=== PATIENT | female | born 1995 | race Two or more races ===

== ENCOUNTER 2024-10-28 07:57 | Outpatient (RCR) | payer MEDICAID, SELFPAY ==
--- NOTE | 2024-09-09 08:29 | XR_ITS ---
Examination: Biophysical profile, ultrasound Date and time of exam: September 09, 2024 0832 hours INDICATIONS: Diagnosis gestational diabetes Technique: Multiple transabdominal sonographic images of the pelvis abdomen obtained. Attention is directed to the breathing movement, gross body movement, amniotic fluid volume and tone. Findings: Amniotic fluid index 12.8 cm Total biophysical profile is 8 of 8. breathing movement is 2. Gross body movement is 2. tone is 2. Qualitative amniotic fluid volume is 2 Impression: Biophysical profile is 8 of 8.
[2024-09-09 09:05] VITALS: BP 106/60; PULSE 70; RESP 20
--- NOTE | 2024-09-16 08:07 | XR_ITS ---
Examination: Biophysical profile, ultrasound Date and time of exam: September 16, 2024 0812 hours INDICATIONS: Diagnosis gestational diabetes Technique: Multiple transabdominal sonographic images of the pelvis abdomen obtained. Attention is directed to the breathing movement, gross body movement, amniotic fluid volume and tone. Findings: Amniotic fluid index 20.0 cm Total biophysical profile is 8 of 8. breathing movement is 2. Gross body movement is 2. tone is 2. Qualitative amniotic fluid volume is 2 Impression: Biophysical profile is 8 of 8.
[2024-09-16 09:09] VITALS: BP 108/54; PULSE 66; RESP 18; TEMP 36.7
--- NOTE | 2024-09-23 08:04 | XR_ITS ---
Examination: Biophysical profile, ultrasound Date and time of exam: September 28, 2024 0806 hrs. Indications: Diagnosis gestational diabetes Technique: Multiple transabdominal sonographic images of the pelvis abdomen obtained. Attention is directed to the breathing movement, gross body movement, amniotic fluid volume and tone. Findings: Amniotic fluid index 22.5 cm Total biophysical profile is 8 of 8. breathing movement is 2. Gross body movement is 2. tone is 2. Qualitative amniotic fluid volume is 2 Impression: Biophysical profile is 8 of 8. Amniotic fluid index 22.5 cm
[2024-09-23 08:26] VITALS: BP 120/58; PULSE 74; RESP 16; TEMP 36.6
--- NOTE | 2024-09-30 08:41 | XR_ITS ---
Examination: Biophysical profile, ultrasound Date and time of exam: September 30, 2024 0902 hours INDICATIONS: Diagnosis gestational diabetes, diagnosis polyhydramnios, diagnosis three-vessel umbilical cord Technique: Multiple transabdominal sonographic images of the pelvis abdomen obtained. Attention is directed to the breathing movement, gross body movement, amniotic fluid volume and tone. Findings: Amniotic fluid index 15.4 cm Total biophysical profile is 8 of 8. breathing movement is 2. Gross body movement is 2. tone is 2. Qualitative amniotic fluid volume is 2 Impression: Biophysical profile is 8 of 8. Incidental note three-vessel umbilical cord, thickened appearance
[2024-09-30 10:20] VITALS: BP 109/57; PULSE 70; RESP 18; TEMP 36.5
--- NOTE | 2024-10-14 08:08 | XR_ITS ---
Examination: Biophysical profile, ultrasound Date and time of exam: October 14, 2024 0827 hours INDICATIONS: Diagnosis gestational diabetes, diagnosis polyhydramnios, diagnosis three-vessel umbilical cord Technique: Multiple transabdominal sonographic images of the pelvis abdomen obtained. Attention is directed to the breathing movement, gross body movement, amniotic fluid volume and tone. Findings: Amniotic fluid index 15.6 cm Total biophysical profile is 8 of 8. breathing movement is 2. Gross body movement is 2. tone is 2. Qualitative amniotic fluid volume is 2 Impression: Biophysical profile is 8 of 8.
[2024-10-14 08:50] VITALS: BP 110/62; PULSE 69; RESP 18; TEMP 35.8
--- NOTE | 2024-10-21 08:14 | XR_ITS ---
Examination: Biophysical profile, ultrasound Date and time of exam: October 21, 2024 0831 hours INDICATIONS: Diagnosis gestational diabetes Technique: Multiple transabdominal sonographic images of the pelvis abdomen obtained. Attention is directed to the breathing movement, gross body movement, amniotic fluid volume and tone. Findings: Amniotic fluid index 17.1 cm Total biophysical profile is 8 of 8. breathing movement is 2. Gross body movement is 2. tone is 2. Qualitative amniotic fluid volume is 2 Impression: Biophysical profile is 8 of 8.
[2024-10-21 08:44] VITALS: BP 109/58; PULSE 68; RESP 16; TEMP 36.6
--- NOTE | 2024-10-28 08:02 | XR_ITS ---
Examination: Biophysical profile, ultrasound Date and time of exam: October 28, 2024 at 0817 hrs. Indications: Diagnosis gestational diabetes Technique: Multiple transabdominal sonographic images of the pelvis abdomen obtained. Attention is directed to the breathing movement, gross body movement, amniotic fluid volume and tone. Findings: Amniotic fluid index 19.3 cm Total biophysical profile is 8 of 8. breathing movement is 2. Gross body movement is 2. tone is 2. Qualitative amniotic fluid volume is 2 Impression: Biophysical profile is 8 of 8.
[2024-10-28 08:35] VITALS: BP 110/64; PULSE 67; RESP 16; TEMP 36.6
== END 2024-10-28 23:59 | disposition home or self-care (01) ==
LOC: S4S1 07:57
PROVIDERS: PCP Advanced Practice Midwife; Referring Provider Advanced Practice Midwife; Visit Provider Advanced Practice Midwife
DX: O24.410 Gestational diabetes mellitus in pregnancy, diet controlled (principal); Z3A.39 39 weeks gestation of pregnancy; O09.93 Supervision of high risk pregnancy, unspecified, third trimester; Z11.1 Encounter for screening for respiratory tuberculosis
CPT/HCPCS: 59025; 76819

== ENCOUNTER 2024-10-30 18:14 | Inpatient (IN) | payer MEDICAID, SELFPAY ==
[2024-10-30] VITALS (9 sets, daily range): BP systolic 108–118; BP diastolic 55–68; PULSE 66–72; RESP 17–20; TEMP 36.4–36.9; BMI 30.2
[2024-10-30] MEDS: Ampicillin Inj 2,000 MG in SODIUM CHLORIDE 0.9% (POP) 100 ML 100 MG IV (19:20)
[2024-10-30] MEDS: RINGERS LACTATED 1000 ML 1,000 ML 100 ML IV (19:21)
[2024-10-30 19:43] LABS: Basophils % (Auto) 0 % (0-2.5); Eosinophils # (Auto) 0.1 Thou/mm3 (0.0-0.5); Eosinophils % (Auto) 1 % (0-10); Hematocrit 36.1 % (36.0-46.0); Hemoglobin 12.3 g/dL (12.0-16.0); Immature Granulocytes % (Auto) 1 % (0-0); Immature Granulocytes Auto 0.06 Thou/mm3 (0.00-0.00); Lymphocytes # (Auto) 2.2 Thou/mm3 (1.0-4.8); Lymphocytes % (Auto) 28 % (10-50); Mean Corpuscular HGB Conc 34.1 g/dl (31.0-37.0); Mean Corpuscular Hemoglobin 28.2 pg (25.0-35.0); Mean Corpuscular Volume 83 fL (80-100); Monocytes # (Auto) 0.6 Thou/mm3 (0.0-0.8); Monocytes % (Auto) 8 % (0-12); Neutrophils # (Auto) 4.7 Thou/mm3 (1.8-7.7); Neutrophils % (Auto) 61 % (37-80); Nucleated Red Blood Cell % 0 /100 WBC (0); Platelet Count 295 Thou/mm3 (140-440); RDW Standard Deviation 41.5 fL (36.4-46.3); Red Blood Count 4.36 Miln/mm3 (4.00-5.20); White Blood Count 7.7 Thou/mm3 (3.6-11.0)
--- NOTE | 2024-10-30 20:12 | PD.LDHP ---
Documentation for date of: 10/30/24 OB Labor/Induct. HPI History of Present Illness : 4 Para: 3 Term pregnancies: 0 pregnancies: 0 Living children: 3 History of Abortions: Spontaneous and Elective: 0 History of sections: No History of : No ANTONOI: 11/01/24 Gestational Age (weeks): 39 Gestational Age (days): 5 Indication for induction: medical complication ([id number] gestational diabetes) History of present illness: Patient is a 29-year-old -0-0-3 all care [facility] presents for scheduled induction of labor secondary to gestational diabetes. Patient is 39-5/7 weeks. She is strep screen positive. On presentation she was having a regular contractions and is 5 cm dilated. History of Present Dating criteria: LMP confirmed by 1st trimester US Adequate Care: Yes Ultrasounds: normal mid trimester US Obstetrical complications: gestational diabetes Medical complications: none Labs Maternal Blood Type: O Pos Labs: Positive: Rubella Titre and Group Beta Strep and Negative: RPR, Hepatitis B, HIV, Chlamydia and Gonorrhea Review of Systems Review of Systems Systems Reviewed: All systems reviewed, normal except as documented Narrative Review of Systems: Patient reports mild cramping rates her pain a 4 out of 10. No loss of fluids no vaginal bleeding good movement. Past Medical History Surgical History SURGICAL: Negative Section Meds Home Medications and Allergies Home Medications ?Medication ?Instructions ?Recorded ?Confirmed ?Type vitamins no.159-iron 1 tab PO QDAY 09/16/24 10/28/24 History fumarate 28 mg-folic acid 800 mcg tablet ( Vitamin) Allergies Allergy/AdvReac Type Severity Reaction Status Date / Time No Known Allergies Allergy Verified 10/28/24 08:34 OB Exam Physical Exam Vital signs: Temp Resp 98.4 F 20 10/30/24 18:42 10/30/24 18:42 Constitutional Constitutional: no acute distress and cooperative Comments: Patient is a very pleasant 29-year-old female. Japanese-speaking only. Appears in no apparent distress. Routine Abdominal Exam Abdominal: Present soft Comments: Estimated weight by Trevor's approximately 8-8 and half pounds Detailed Labor and Delivery Exam Dilation (cm): 5 Effacement (%): 80 Cervix position: posterior station: -2 Consistency: soft Presentation: Vertex Membranes: intact Baseline heart rate: 135 monitor accelerations: 15x15 monitor decelerations: None terminal operator variability: Moderate (11-25) Contraction frequency (min): 5-6 min Contraction duration (sec): 30 Tachysystole: No Contraction intensity: Moderate OB Results Labs 10/30/24 19:20 Labs: Short CBC 10/30/24 Range/Units 19:20 WBC 7.7 (3.6-11.0) Thou/mm3 Hgb 12.3 (12.0-16.0) g/dL Hct 36.1 (36.0-46.0) % Plt Count 295 (140-440) Thou/mm3 Impressions Impression: Intrauterine at 39-5/7 weeks with history of gestational diabetes and multiparity. Patient appears comfortable but she is 5 cm dilated. She is justo on her own about every 5 to 6 minutes. The plan will be to hold Cytotec induction until patient gets her antibiotics on board. She is strep screen positive. Reevaluate in 4 hours to determine whether patient needs augmentation. This was explained to the patient through a medical record retrieval specialist in detail and all questions were answered. OB Assessment & Plan Assessment and Plan (1) Gestational diabetes mellitus (GDM) affecting : Status: Acute (2) Mother positive for group B Streptococcus colonization: Status: Acute Additional Plan Induction method: other Plan: augmentation, anticipate NVD and GBS prophylaxis tx Additional Plan Comment: Hold induction and augmentation medications as patient is 5 cm dilated in order to get ampicillin on board.
[2024-10-30 20:21] LABS: Syphilis Nonreactive (Nonreactive)
[2024-10-31] VITALS (26 sets, daily range): BP systolic 98–133; BP diastolic 55–75; PULSE 59–96; RESP 17–20; TEMP 36.6–36.9; O2SAT 98
[2024-10-31] MEDS: Ampicillin Inj 1,000 MG in SODIUM CHLORIDE 0.9% (Popper) 50 ML 100 MG IV (00:11)
[2024-10-31] MEDS: OXYTOCIN in NS 30 units 30 UNIT/500 ML BAG IV (01:16)
[2024-10-31] MEDS: fentaNYL CIT INJ 50 mCg/ML AMP 2ML 100 MCG IV (04:00)
[2024-10-31] MEDS: RINGERS LACTATED 1000 ML 1,000 ML 100 ML IV (04:03)
[2024-10-31] MEDS: OXYTOCIN in NS 20 units 20 UNIT/1,000 ML BAG 125 UNIT IV (04:58)
[2024-10-31] MEDS: LIDOCAINE HCL 1% 20 ML VIAL INFL (05:05)
[2024-10-31 05:25] LABS: Amphetamine/Metham Scrn,Ur OB Negative (Negative); Benzoylecgonine Screen, Ur OB Negative (Negative); Opiate Screen,Urine OB Negative (Negative); THC Screen,Urine OB Negative (Negative)
--- NOTE | 2024-10-31 05:31 | OBDSUM_ITS ---
Data ([facility]) Data Hx Section: No Maternal Blood Type: O Pos Rubella Titre: Positive RPR: Non-reactive Labs: Positive: Group Beta Strep and Negative: RPR, Hepatitis B, HIV, Chlamydia and Gonorrhea : 4 Para: 3 Term: 3 : 0 : 0 Delivery Data ([facility]) Labor Data Stimulated/Augmented: Yes Induction: Yes Method: Oxytocin ROM Date: 10/31/24 ROM Time: 04:45 Rupture Type: AROM Amniotic Fluid: Clear Delivery Data EDC: 11/01/24 EDC calculated by:: LMP/early US confirmation Labor Onset Stage 1 Date: 10/31/24 Labor Onset Stage 1 Time: 02:50 Labor Onset Stage 2 Date: 10/31/24 Labor Onset Stage 2 Time: 04:45 Delivery Date: 10/31/24 Delivery Time: 04:54 Gestational age (weeks): 39 Gestational age (days): 6 Placenta Delivery Date: 10/31/24 Placenta Delivery Time: 04:58 Length stage 2 (minutes): 5 Length stage 3 (minutes): 4 Delivered by: Deana Cruz Delivery nurse: Akira Gaspar Regulatory Affairs Director at delivery: No Support person(s) at delivery: None Other staff at delivery: Nursery Nurse Other staff at delivery: Nurse Other staff at delivery: Tracey Andersen Other staff at delivery: Amanda Sparks Delivery Method Delivery: Vaginal Delivery Type: Spontaneous Presentation: Vertex Position: OA Anesthesia Type Primary Anesthesia: None Secondary Anesthesia: Local Delivery Room Medications Intrapartum Medications: Antibiotics and Narcotics Placenta Placenta Delivery: Spontaneous Placenta Cultures Obtained: No Placenta Sent for Examination: No Cord Sample: Cord Blood Obtained Episiotomy Episiotomy: None Lacerations #1: Perineal: 1st degree Perineal repair Sutures used for repair: 4.0 Chromic EBL Estimated blood loss (ml): 150 Umbilical Cord Placenta/Cord Complication: Other (Very short cord) Umbilical Vessels: 3 Nuchal Cord: None Body Cord: None Additional Procedures Patient rapidly progressed from 5 cm to 8 cm and I was called to bedside. Patient rapidly progressed to complete. I AROMed to her immediately before delivery. She then pushed through 2 contractions delivering a liveborn male at 4:54 AM. The placenta was complete spontaneous grossly normal delivering approximately 4 minutes after the baby. Patient sustained a first-degree perineal laceration repaired in a standard fashion using 2-0 and 4-0 chromic under local anesthesia. The baby did have a short cord but no body cord no meconium. Apgars were 9 and 9 and weight was 7 pounds 11 ounces. Complications Complications: none Mellette Data ([facility]) Data Mellette's name: [employer]oration[employer] Gender: Male Weight Grams: 3495 1 Minute Total: 9 5 Minute Total: 9
[2024-10-31] MEDS: IBUPROFEN TAB 400 MG TABLET 800 MG PO (05:45)
[2024-10-31] MEDS: BENZO/LANO/ALOE (Dermoplast) 60 GM CAN 1 SPRAY TOP (06:24)
[2024-11-01 00:02] VITALS: BP 106/65; PULSE 84; RESP 19; TEMP 36.8; O2SAT 98
--- NOTE | 2024-11-01 01:55 | PC.NURSE ---
0005 Verified patient information with the pt using senior paralegal services. Physician Coder used was named Nigel, senior paralegal number [id number].
[2024-11-01 04:13] VITALS: BP 111/67; PULSE 70; RESP 18; TEMP 36.4; O2SAT 98
[2024-11-01 06:47] LABS: Basophils # (Auto) 0.1 Thou/mm3 (0.0-0.2); Basophils % (Auto) 1 % (0-2.5); Eosinophils # (Auto) 0.1 Thou/mm3 (0.0-0.5); Eosinophils % (Auto) 1 % (0-10); Hematocrit 31.3 % (36.0-46.0); Hemoglobin 10.4 g/dL (12.0-16.0); Immature Granulocytes % (Auto) 1 % (0-0); Immature Granulocytes Auto 0.12 Thou/mm3 (0.00-0.00); Lymphocytes # (Auto) 2.9 Thou/mm3 (1.0-4.8); Lymphocytes % (Auto) 27 % (10-50); Mean Corpuscular HGB Conc 33.2 g/dl (31.0-37.0); Mean Corpuscular Hemoglobin 28.3 pg (25.0-35.0); Mean Corpuscular Volume 85 fL (80-100); Monocytes # (Auto) 0.7 Thou/mm3 (0.0-0.8); Monocytes % (Auto) 6 % (0-12); Neutrophils # (Auto) 6.9 Thou/mm3 (1.8-7.7); Neutrophils % (Auto) 64 % (37-80); Nucleated Red Blood Cell % 0 /100 WBC (0); Platelet Count 261 Thou/mm3 (140-440); RDW Standard Deviation 43.9 fL (36.4-46.3); Red Blood Count 3.68 Miln/mm3 (4.00-5.20); White Blood Count 10.8 Thou/mm3 (3.6-11.0)
[2024-11-01 08:00] VITALS: BP 104/64; PULSE 81; RESP 18; TEMP 36.7; O2SAT 98
--- NOTE | 2024-11-01 10:02 | PC.SS ---
Delon received a referral for patient due to receiving care at 16 weeks of gestation. This is 29-year-old, , female who presented to the hospital to deliver her son. Patient appeared alert and oriented to self, place and situation. Patient was pleasant, her mood and behavior were ordinary. Patient's thought process was logical and linear. Patient verified her address and phone number. Patient resides at home with her and father of her child, Jose Guthrie (phone: [phone]), and their 3-children (ages; 12, 9, and 6). Patient works in agriculture. She receives WIC and foodstamps. Patient is independent with ADLs, no DME use. Patient denied any domestic violence, substance use, and child welfare services involvement. Patient denies any history or current mental health illnesses. She denies receiving any outpatient mental health services. Patient denies any history of suicide attempts, 5150 holds. Patient denied any HI, SI. Patient reports feeling happy and excited to return home. Patient reports having all the equipment for the baby. Patient reported that she went to [facility] for an appointment to confirm her , then it took sometime to schedule an appointment. When medically clear, patient will return home with her and her 3-children. Patient declined any community resources.
--- NOTE | 2024-11-01 11:03 | PD.LDDS ---
DS: Providers Provider Date of admission: 10/30/24 18:14 Primary care physician: Physician No Primary/Family Admitting Provider: Deana Cruz MD Attending Provider on Admission: Deana Cruz MD Consults: 10/31/24 05:38 Referral Routine Comment: Attending Provider on DC: Clary Mcnair MD Discharging Provider: Clary Mcnair MD DS: Diagnosis Discharge Diagnosis (1) Normal labor and delivery: Status: Acute (2) Gestational diabetes mellitus (GDM) affecting : Status: Acute (3) Mother positive for group B Streptococcus colonization: Status: Acute Problem List Completed Was Problem List Reviewed/Reconciled?: Yes Summary/Hosp Course Brief History: Patient is a 29-year-old -0-0-3 all care [facility] presents for scheduled induction of labor secondary to gestational diabetes. Patient is 39-5/7 weeks. She is strep screen positive. On presentation she was having a regular contractions and is 5 cm dilated. She is doing well on PPD1. She has had an uncomplicated course, meeting all milestones and feels ready for discharge home. She is ambulating without lightheadedness, tolerating regular diet no n/v, spontaneously voiding without issue. She has no chest pain or shortness of breath. No fevers or chills. Minimal, appropriate discomfort. Vitals normal, benign exam. Hemodynamically stable with no evidence of infection. PP Hgb 10.4. Status at Discharge Functional status at discharge: independent ambulation Overall status at discharge: patient is back to baseline Time Spent with Patient Time attestation: Total time spent providing and/or coordinating discharge services: Exam Vital Signs Temp Pulse Resp BP Pulse Ox O2 Del Method 98.0 F 81 18 104/64 98 Room Air 11/01/24 08:00 11/01/24 08:00 11/01/24 08:00 11/01/24 08:00 11/01/24 08:00 11/01/24 08:00 Narrative Exam General: well developed, well nourished, no acute distress, conversant Cardiac: normal heart rate Lungs: breathing without distress Abdomen: soft, post-gravid, non-tender, no rebound or guarding, Fundus firm at u-3cm. Extremities: no pain with palpation of calves, trace edema of BLE Discharge Plan Plan Patient Disposition: HOME (Self Care) Patient condition on transfer: Stable Prescriptions/Referrals Prescriptions/Med Rec: New ibuprofen 800 mg tablet 800 mg PO Q8H PRN (Reason: See Comments) 10 Days Qty: 30 0RF ferrous sulfate 325 mg (65 mg iron) tablet 325 mg PO QDAY Qty: 30 0RF docusate sodium [Colace] 100 mg capsule 100 mg PO BID Qty: 20 0RF Continued Vitamin 28 mg iron- 800 mcg Tablet 1 tab PO QDAY Referrals: No Primary/Family,Physician [Primary Care Provider] - Patient/Caregiver Discharge Instructions Discharge Activity: activity as tolerated and other Other Discharge Activity Instructions:: vaginal rest and no heavy lifting more than 10 pounds for 6 weeks. Other Discharge Diet Instructions: Regular Education Materials: After a Vaginal Print Language: Croatian Activity Restrictions/Additional Instructions: follow up for visit in 4 weeks, call clinic for appointment Stand Alone Forms: Gracia Award Info., Patient Portal Info Letter Discharge Order Discharge Orders: Discharge (Routine); Ordered 11/01/24 Ordered By: Clary Mcnair Planned Discharge Date 11/01/24
== END 2024-11-01 14:26 | disposition home or self-care (01) | DRG 560 ==
LOC: S4SX 18:57 → S4NX 10-31 07:18
PROVIDERS: Admitting Provider Obstetrics & Gynecology; Visit Provider Obstetrics & Gynecology
DX: O24.429 Gestational diabetes mellitus in childbirth, unspecified control (principal); O99.824 Streptococcus B carrier state complicating childbirth; Z37.0 Single live birth; Z3A.39 39 weeks gestation of pregnancy; O70.0 First degree perineal laceration during delivery; O69.3XX0 Labor and delivery complicated by short cord, not applicable or unspecified
CPT/HCPCS: 36415; 59409; 80307; 85025; 86780; 86850; 86900; 86901; J0290; J2590; J3010; J3490; J7050; J7120; A9270